=== PATIENT | female | born 1975 | race Caucasian/White ===

== ENCOUNTER 2016-08-31 08:46 | Emergency (ER) | payer SELFPAY ==
[2016-08-31 09:40] VITALS: BP 142/83
== END 2016-08-31 09:40 | disposition home or self-care (01) ==
LOC: ED 08:46
DX: B34.9 Viral infection, unspecified (principal); H10.9 Unspecified conjunctivitis; R03.0 Elevated blood-pressure reading, without diagnosis of hypertension

== ENCOUNTER 2016-11-26 07:59 | Emergency (ER) | payer MEDICAID ==
[~2016-11-26] VITALS: Ht 160 cm; Wt 92.5 kg
[2016-11-26 08:49] VITALS: BP 134/69
== END 2016-11-26 08:49 | disposition home or self-care (01) ==
LOC: ED 07:59
DX: M54.12 Radiculopathy, cervical region (principal); M79.601 Pain in right arm
CPT/HCPCS: J1100; J1885

== ENCOUNTER 2017-05-15 00:59 | Emergency (ER) | payer SELFPAY ==
[~2017-05-15] VITALS: Ht 157.5 cm; Wt 90.3 kg
[2017-05-15 01:36] VITALS: Ht 157.5 cm; Wt 90.3 kg
[2017-05-15 02:47] LABS: BASOPHIL % 0.3 % (0-2); PLATELET COUNT 278 x10^3mcL (130-400)
[2017-05-15 03:00] LABS: CALCIUM 8.4 mg/dL (8.5-10.1); CARBON DIOXIDE 23.4 mmol/L (21-32); CHLORIDE SERUM 105 mmol/L (98-107); CREATININE SERUM 0.8 mg/dL (0.6-1.0); GFR1 > 60 mL/min; GLUCOSE SERUM 112 mg/dL (74-106); SODIUM SERUM 138 mmol/L (136-145)
[2017-05-15 03:04] LABS: ALBUMIN 3.4 g/dL (3.4-5.0); ALKALINE PHOSPHATASE 85 U/L (46-116); ALT/SGPT 35 U/L (14-59); AST/SGOT 37 U/L (15-37); BILIRUBIN TOTAL 0.74 mg/dL (0.20-1.00); LIPASE 79 IU/L (73-393); TOTAL PROTEIN, SERUM 7.7 g/dL (6.4-8.2)
[2017-05-15 03:55] VITALS: BP 110/86
== END 2017-05-15 04:12 | disposition home or self-care (01) ==
LOC: ED 00:59
PROVIDERS: Emergency Medicine
DX: J11.1 Influenza due to unidentified influenza virus with other respiratory manifestations (principal); R19.7 Diarrhea, unspecified
CPT/HCPCS: J1885; J2405; J7030

== ENCOUNTER 2018-06-15 22:50 | Emergency (ER) | payer OTHER ==
[~2018-06-15] VITALS: Ht 160 cm; Wt 94.3 kg
[2018-06-15 23:01] VITALS: BP 112/80; Ht 160 cm; Wt 94.3 kg
== END 2018-06-16 01:05 | disposition left against medical advice (07) ==
LOC: ED 22:50
DX: Z53.21 Procedure and treatment not carried out due to patient leaving prior to being seen by health care provider (principal)

== ENCOUNTER 2018-07-19 09:26 | Emergency (ER) | payer OTHER ==
[~2018-07-19] VITALS: Ht 160 cm; Wt 90.9 kg
[2018-07-19 09:42] VITALS: BP 123/78; Ht 160 cm; Wt 90.9 kg
== END 2018-07-19 11:08 | disposition home or self-care (01) ==
LOC: ED 09:26
DX: J30.9 Allergic rhinitis, unspecified (principal); Z98.51 Tubal ligation status